=== PATIENT | male | born 1945 | race Caucasian/White ===

== ENCOUNTER 2016-11-23 12:02 | Emergency (ER) | payer MEDICARE, OTHER ==
--- NOTE | 2016-11-23 13:43 | XRAY Preliminary Report ---
Exam: XR Hand 3 View LT IMPRESSION: 1. Negative for evidence of a fracture or radiopaque foreign body. 2. Soft tissue injury distal index, long, and ring fingers. [facility] SITE ID: [id number]
--- NOTE | 2016-11-23 13:46 | XRAY Report ---
EXAM: LEFT HAND RADIOGRAPHY EXAM DATE: 11/23/2016 01:14 PM. CLINICAL HISTORY: Injury lac. Table saw injury. COMPARISON: None. TECHNIQUE: 3 views. FINDINGS: Bones: The bones appear to be intact without evidence of a fracture. Joints: Normal. No subluxations. Soft Tissues: There is soft tissue swelling and overlying bandage material in the distal index, long, and ring fingers. No radiopaque foreign bodies. IMPRESSION: 1. Negative for evidence of a fracture or radiopaque foreign body. 2. Soft tissue injury distal index, long, and ring fingers. [facility] Referring Provider Line: [phone] SITE ID: [id number]
[2016-11-23] MEDS ORDERED: BUFFERED LIDOCAINE 10 ML SYRINGE ONE (14:03)
[2016-11-23] MEDS ORDERED: TETANUS/DIPHTHERIA/PERTUSSIS 0.5 ML SYRINGE IM ONE ×2 (14:05→14:41)
--- NOTE | 2016-11-23 14:07 | ED Physician Documentation ---
PD HPI UPPER EXT INJURY - Stated complaint Stated Complaint: L HAND LAC - Chief complaint Chief Complaint: Laceration - History obtained from History obtained from: Patient - History of Present Illness Location: Other (Right-handed gentleman with unknown tetanus status cut the second third and fourth digits of the left hand just prior to arrival on a table saw while working at home.) Review of Systems Constitutional: reports: Reviewed and negative Nose: reports: Reviewed and negative Throat: reports: Reviewed and negative PD PAST MEDICAL HISTORY - Past Medical History Cardiovascular: Hypertension - Past Surgical History Past Surgical History: Yes - Present Medications Home Medications: Ambulatory Orders Medication Instructions Recorded Confirmed Aspirin [Aspir 81] 01/28/15 01/28/15 Lisinopril/Hydrochlorothiazide BID 01/28/15 01/28/15 [Lisinopril-Hctz 20-25 mg Tab] Glucosamine Sulfate 500 mg PO 02/08/16 Cephalexin [Keflex] 500 mg PO QID #40 capsule 11/23/16 - Allergies Allergies/Adverse Reactions: Allergies Allergy/AdvReac Type Severity Reaction Status Date / Time No Known Drug Allergies Allergy Verified 01/28/15 11:04 - Social History Does the pt smoke?: No Smoking Status: Never smoker Does the pt have substance abuse?: No - Immunizations Immunizations are current?: Yes PD ED PE NORMAL - Vitals Vital signs reviewed: Yes - General General: Alert and oriented X 3, No acute distress - Extremities Extremities: Other (Left hand: He has a shallow jagged laceration of the pulp of the fourth finger, a deeper laceration on the radial side of the middle finger and second finger, he has mildly diminished sensation on the tip of the middle finger but not absent. Tendon function, both flexor and and extensor is intact in all digits.) - Neuro Neuro: Alert and oriented X 3, Normal speech - Psych Psych: Normal mood, Normal affect Results - Vitals Vitals: Vital Signs - 24 hr 11/23/16 12:23 Temperature 36.5 C Heart Rate 74 Respiratory 18 Rate Blood Pressure 146/93 H O2 Saturation 98 Oxygen O2 Source Room air Procedures - Laceration (location) L HAND 2ND/3RD/4TH DIGITS Length in cm: 5 Wound type: Other (He had contaminated lacerations of the second through fourth fingers, on exploration he does have a flexor tendon laceration at the insertion on the second digit.) Anesthesia: Lidocaine 1%, With bicarb Wound Preparation: Hibiclens, Irrigated copiously NS Skin layer closure: Nylon, Interrupted, Size #-0 - enter number (4-0) Other: Patient tolerated well, No complications, Neurovascular intact, Tetanus booster given Complexity: Intermediate PD MEDICAL DECISION MAKING - ED course ED course: On exploration during repair. He has a visible laceration of the flexor tendon of the second digit at the level of the insertion onto the distal phalanx. This was discussed with him. Function seems intact though. The wound was debrided, irrigated and closed and he knows he needs to follow-up with hand surgeon. Departure - Departure Disposition: Home, Self Care Clinical Impression: Laceration of multiple sites of hand and fingers Qualifiers: Encounter type: initial encounter Laterality: left Qualified Code(s): S61.412A - Laceration without foreign body of left hand, initial encounter Condition: Good Record reviewed to determine appropriate education?: Yes Instructions: ED Laceration All Prescriptions: Cephalexin [Keflex] 500 mg PO QID #40 capsule Comments: You do have a laceration of the flexor tendon, partial, of the second digit at the insertion onto the distal phalanx. This requires follow-up with a hand surgeon, the closest is in [place], call [phone] toDAY to schedule an appointment. The appointment should be within the week. Keep the dressings on and dry until you follow-up. Your blood pressure was elevated today on check into the emergency department. This does not mean that you have hypertension, it is a common phenomenon to come to the emergency department and have elevated blood pressure. I recommend that she see your primary care physician within the week to have it rechecked when you are feeling better.
[2016-11-23] MEDS ORDERED: CEPHALEXIN 250 MG CAPSULE PO STA (14:33)
[2016-11-23] MEDS ORDERED: CEPHALEXIN 250 MG CAPSULE PO ONE (14:41)
[2016-11-23 15:00] VITALS: BP 139/88
== END 2016-11-23 14:59 | disposition home or self-care (01) ==
LOC: ED 12:02
DX: S61.211A Laceration without foreign body of left index finger without damage to nail, initial encounter (principal); S61.213A Laceration without foreign body of left middle finger without damage to nail, initial encounter; W27.0XXA Contact with workbench tool, initial encounter; Y93.89 Activity, other specified; Y92.009 Unspecified place in unspecified non-institutional (private) residence as the place of occurrence of the external cause; I10 Essential (primary) hypertension; Z79.82 Long term (current) use of aspirin; Z23 Encounter for immunization
CPT/HCPCS: 12032; 73130; 90471; 90715; 99283; A9270

== ENCOUNTER 2016-11-30 07:06 | Outpatient (CLI) | payer MEDICARE, OTHER ==
[2016-11-30 11:20] LABS: BASOPHILS % (AUTO) 0.8 %; EOSINOPHILS # (AUTO) 0.1 10^3/uL (0.0-0.7); EOSINOPHILS % (AUTO) 1.3 %; HCT - HEMATOCRIT 46.2 % (42.0-52.0); HGB - HEMOGLOBIN 15.5 g/dL (14.0-18.0); LYMPHOCYTES # (AUTO) 1.4 10^3/uL (1.5-3.5); LYMPHOCYTES % (AUTO) 27.5 %; MEAN CORPUSCULAR HEMOGLOBIN 33.3 pg (27.0-31.0); MEAN CORPUSCULAR HGB CONC 33.5 g/dL (32.0-36.0); MEAN CORPUSCULAR VOLUME 99.3 fL (80.0-94.0); MEAN PLATELET VOLUME 8.7 fL (7.4-11.4); MONOCYTES # (AUTO) 0.4 10^3/uL (0.0-1.0); MONOCYTES % (AUTO) 8.1 %; NEUTROPHILS # (AUTO) 3.2 10^3/uL (1.5-6.6); NEUTROPHILS % (AUTO) 62.3 %; NUCLEATED RED BLOOD CELLS AUTO 0.1 /100WBC; RED BLOOD COUNT 4.66 10^6/uL (4.70-6.10); RED CELL DISTRIBUTION WIDTH 13.2 % (12.0-15.0); UNCORRECTED WHITE BLOOD COUNT 5.1 x10^3/uL; WHITE BLOOD COUNT 5.1 x10^3/uL (4.8-10.8)
[2016-11-30 11:38] LABS: ALBUMIN/GLOBULIN RATIO 1.2 (1.0-2.2); BILIRUBIN,TOTAL 0.9 mg/dL (0.2-1.0); CALCIUM 9.5 mg/dL (8.5-10.3); CREATININE 0.8 mg/dL (0.6-1.2); POTASSIUM 4.2 mmol/L (3.5-5.0); TOTAL PROTEIN 7.9 g/dL (6.7-8.2)
== END 2016-11-30 07:07 | disposition home or self-care (01) ==
LOC: LAB.F 07:06
PROVIDERS: ATTEND Internal Medicine
DX: R53.83 Other fatigue (principal); R43.0 Anosmia; R43.2 Parageusia; I10 Essential (primary) hypertension; F34.1 Dysthymic disorder
CPT/HCPCS: 36415; 80053; 84443; 85025

== ENCOUNTER 2017-04-20 07:04 | Outpatient (CLI) | payer MEDICARE, OTHER ==
[2017-04-20 11:58] LABS: CHOLESTEROL 263 mg/dL; HDL CHOLESTEROL 66 mg/dL; LDL CHOLESTEROL,CALCULATED 159 mg/dL; LDL/HDL RATIO 2.4 (<3.6); VLDL CHOLESTEROL 38 mg/dL
== END 2017-04-20 07:05 | disposition home or self-care (01) ==
LOC: LAB.F 07:04
PROVIDERS: ATTEND Internal Medicine
DX: E78.5 Hyperlipidemia, unspecified (principal)
CPT/HCPCS: 36415; 80061; 83721

== ENCOUNTER 2017-05-16 14:02 | Outpatient (CLI) | payer MEDICARE, OTHER | END 2017-05-16 14:03 | disposition home or self-care (01) | LOC: SC 14:02 | PROVIDERS: ATTEND Internal Medicine Pulmonary Disease | DX: G47.10 Hypersomnia, unspecified (principal); G47.8 Other sleep disorders; R06.83 Snoring | CPT/HCPCS: 99203; G0463; 99212 ==

== ENCOUNTER 2017-05-29 08:00 | Outpatient (CLI) | payer MEDICARE, OTHER ==
[2017-05-29 11:58] LABS: CALCIUM 9.1 mg/dL (8.5-10.3); CREATININE 0.9 mg/dL (0.6-1.2)
== END 2017-05-29 08:01 | disposition home or self-care (01) ==
LOC: LAB.F 08:00
PROVIDERS: ATTEND Internal Medicine
DX: R53.83 Other fatigue (principal); E78.5 Hyperlipidemia, unspecified; G47.10 Hypersomnia, unspecified; R73.01 Impaired fasting glucose; I10 Essential (primary) hypertension; Z86.010 Personal history of colon polyps; Z85.46 Personal history of malignant neoplasm of prostate
CPT/HCPCS: 36415; 80048

== ENCOUNTER 2017-06-19 08:56 | Outpatient (CLI) | payer MEDICARE, OTHER | END 2017-06-19 08:57 | disposition home or self-care (01) | LOC: RT.S 08:56 | PROVIDERS: ATTEND Internal Medicine | DX: I49.9 Cardiac arrhythmia, unspecified (principal) | CPT/HCPCS: 93005 ==

== ENCOUNTER 2017-07-01 20:47 | Outpatient (CLI) | payer MEDICARE, OTHER | END 2017-07-01 20:48 | disposition home or self-care (01) | LOC: SC 20:47 | PROVIDERS: ATTEND Internal Medicine Pulmonary Disease | DX: G47.61 Periodic limb movement disorder (principal) | CPT/HCPCS: 95810 ==

== ENCOUNTER 2017-07-17 09:17 | Outpatient (CLI) | payer MEDICARE, OTHER | END 2017-07-17 09:18 | disposition home or self-care (01) | LOC: SC 09:17 | PROVIDERS: ATTEND Internal Medicine Pulmonary Disease | DX: G47.61 Periodic limb movement disorder (principal) | CPT/HCPCS: 99213; G0463; 99212 ==

== ENCOUNTER 2017-10-11 07:04 | Outpatient (CLI) | payer MEDICARE, OTHER ==
[2017-10-11 10:52] LABS: CHOL/HDL RATIO 3.1 (<5.0); CHOLESTEROL 204 mg/dL; HDL CHOLESTEROL 65 mg/dL; LDL CHOLESTEROL,CALCULATED 121 mg/dL; LDL/HDL RATIO 1.9 (<3.6); VLDL CHOLESTEROL 18 mg/dL
== END 2017-10-11 07:05 | disposition home or self-care (01) ==
LOC: LAB.F 07:04
PROVIDERS: ATTEND Internal Medicine
DX: I10 Essential (primary) hypertension (principal); E78.5 Hyperlipidemia, unspecified; R53.83 Other fatigue; G47.10 Hypersomnia, unspecified; R73.01 Impaired fasting glucose; Z86.010 Personal history of colon polyps; Z85.46 Personal history of malignant neoplasm of prostate
CPT/HCPCS: 36415; 80061; 83721

== ENCOUNTER 2018-05-23 07:08 | Outpatient (CLI) | payer MEDICARE, OTHER ==
[2018-05-23 11:21] LABS: ALBUMIN/GLOBULIN RATIO 1.3 (1.0-2.2); ALKALINE PHOSPHATASE 46 IU/L (42-121); ALT ALANINE AMINOTRANSFERASE 24 IU/L (10-60); AST ASPARTATE AMINOTRANSFERASE 29 IU/L (10-42); BILIRUBIN,TOTAL 1.1 mg/dL (0.2-1.0); BUN - BLOOD UREA NITROGEN 16 mg/dL (6-20); CALCIUM 8.9 mg/dL (8.5-10.3); CARBON DIOXIDE - CO2 27 mmol/L (21-32); CHLORIDE 102 mmol/L (101-111); CHOL/HDL RATIO 2.7 (<5.0); CHOLESTEROL 223 mg/dL; CREATININE 0.8 mg/dL (0.6-1.2); GFR - MDRD 95 (>89); GLUCOSE 101 mg/dL (70-100); HDL CHOLESTEROL 84 mg/dL; LDL CHOLESTEROL,CALCULATED 119 mg/dL; LDL/HDL RATIO 1.4 (<3.6); SODIUM 138 mmol/L (135-145); VLDL CHOLESTEROL 20 mg/dL
== END 2018-05-23 07:09 | disposition home or self-care (01) ==
LOC: LAB.F 07:08
PROVIDERS: ATTEND Internal Medicine
DX: E78.5 Hyperlipidemia, unspecified (principal)
CPT/HCPCS: 36415; 80053; 80061; 83721

== ENCOUNTER 2019-09-12 07:35 | Outpatient (CLI) | payer MEDICARE, OTHER ==
[2019-09-12 15:22] LABS: CREATININE 0.9 mg/dL (0.6-1.2)
[2019-09-12 15:32] LABS: HB2 TOTAL 16.3 g/dL; HEMOGLOBIN A1C 0.64 g/dL; HEMOGLOBIN A1C % 5.7 % (4.6-6.2)
== END 2019-09-12 07:36 | disposition home or self-care (01) ==
LOC: LAB.S 07:35
PROVIDERS: ATTEND Internal Medicine
DX: I10 Essential (primary) hypertension (principal); R73.01 Impaired fasting glucose
CPT/HCPCS: 36415; 80048; 83036

== ENCOUNTER 2020-06-03 07:10 | Outpatient (CLI) | payer MEDICARE, OTHER ==
[2020-06-03 14:27] LABS: BASOPHILS % (AUTO) 0.8 %; EOSINOPHILS # (AUTO) 0.1 10^3/uL (0.0-0.7); EOSINOPHILS % (AUTO) 2.1 %; HCT - HEMATOCRIT 46.7 % (42.0-52.0); HGB - HEMOGLOBIN 15.5 g/dL (14.0-18.0); LYMPHOCYTES # (AUTO) 1.3 10^3/uL (1.5-3.5); LYMPHOCYTES % (AUTO) 33.2 %; MEAN CORPUSCULAR HEMOGLOBIN 33.4 pg (27.0-31.0); MEAN CORPUSCULAR HGB CONC 33.2 g/dL (32.0-36.0); MEAN CORPUSCULAR VOLUME 100.6 fL (80.0-94.0); MEAN PLATELET VOLUME 10.7 fL (7.4-11.4); MONOCYTES # (AUTO) 0.3 10^3/uL (0.0-1.0); MONOCYTES % (AUTO) 8.5 %; NEUTROPHILS # (AUTO) 2.2 10^3/uL (1.5-6.6); NEUTROPHILS % (AUTO) 55.1 %; PLT - PLATELET COUNT 194 10^3/uL (130-450); RED BLOOD COUNT 4.64 10^6/uL (4.70-6.10); RED CELL DISTRIBUTION WIDTH 12.8 % (12.0-15.0); WHITE BLOOD COUNT 3.9 x10^3/uL (4.8-10.8)
[2020-06-03 15:12] LABS: ALBUMIN 4.2 g/dL (3.2-5.5); ALBUMIN/GLOBULIN RATIO 1.3 (1.0-2.2); ALKALINE PHOSPHATASE 43 IU/L (42-121); ALT ALANINE AMINOTRANSFERASE 26 IU/L (10-60); AST ASPARTATE AMINOTRANSFERASE 27 IU/L (10-42); BUN - BLOOD UREA NITROGEN 17 mg/dL (6-20); CALCIUM 9.2 mg/dL (8.5-10.3); CARBON DIOXIDE - CO2 27 mmol/L (21-32); CHLORIDE 105 mmol/L (101-111); CHOL/HDL RATIO 3.8 (<5.0); CHOLESTEROL 246 mg/dL; CREATININE 0.8 mg/dL (0.6-1.2); GFR - MDRD 94 (>89); GLUCOSE 102 mg/dL (70-100); HDL CHOLESTEROL 64 mg/dL; LDL CHOLESTEROL,CALCULATED 157 mg/dL; LDL/HDL RATIO 2.5 (<3.6); SODIUM 140 mmol/L (135-145); TOTAL PROTEIN 7.4 g/dL (6.7-8.2); TRIGLYCERIDES 127 mg/dL; VLDL CHOLESTEROL 25 mg/dL
== END 2020-06-03 07:11 | disposition home or self-care (01) ==
LOC: LAB.S 07:10
PROVIDERS: ATTEND Internal Medicine
DX: I10 Essential (primary) hypertension (principal); E78.5 Hyperlipidemia, unspecified
CPT/HCPCS: 36415; 80053; 80061; 83721; 85025

== ENCOUNTER 2020-06-24 07:55 | Outpatient (CLI) | payer MEDICARE, OTHER | END 2020-06-24 07:56 | disposition home or self-care (01) | LOC: DI 07:55 | PROVIDERS: ATTEND Internal Medicine | DX: R01.1 Cardiac murmur, unspecified (principal); I51.7 Cardiomegaly | CPT/HCPCS: 93306 ==

== ENCOUNTER 2020-12-15 07:03 | Outpatient (CLI) | payer MEDICARE, OTHER ==
[2020-12-15 14:53] LABS: BASOPHILS # (AUTO) 0.1 10^3/uL (0.0-0.1); BASOPHILS % (AUTO) 1.5 %; EOSINOPHILS # (AUTO) 0.1 10^3/uL (0.0-0.7); EOSINOPHILS % (AUTO) 2.4 %; HCT - HEMATOCRIT 47.4 % (42.0-52.0); HGB - HEMOGLOBIN 15.5 g/dL (14.0-18.0); LYMPHOCYTES # (AUTO) 1.3 10^3/uL (1.5-3.5); LYMPHOCYTES % (AUTO) 32.3 %; MEAN CORPUSCULAR HEMOGLOBIN 33.1 pg (27.0-31.0); MEAN CORPUSCULAR HGB CONC 32.7 g/dL (32.0-36.0); MEAN CORPUSCULAR VOLUME 101.3 fL (80.0-94.0); MEAN PLATELET VOLUME 10.6 fL (7.4-11.4); MONOCYTES # (AUTO) 0.3 10^3/uL (0.0-1.0); MONOCYTES % (AUTO) 8.3 %; NEUTROPHILS # (AUTO) 2.2 10^3/uL (1.5-6.6); NEUTROPHILS % (AUTO) 54.8 %; PLT - PLATELET COUNT 198 10^3/uL (130-450); RED BLOOD COUNT 4.68 10^6/uL (4.70-6.10); RED CELL DISTRIBUTION WIDTH 12.6 % (12.0-15.0); WHITE BLOOD COUNT 4.1 x10^3/uL (4.8-10.8)
[2020-12-15 15:21] LABS: ALBUMIN 4.1 g/dL (3.2-5.5); ALBUMIN/GLOBULIN RATIO 1.3 (1.0-2.2); ALKALINE PHOSPHATASE 44 IU/L (42-121); ALT ALANINE AMINOTRANSFERASE 23 IU/L (10-60); AST ASPARTATE AMINOTRANSFERASE 25 IU/L (10-42); BUN - BLOOD UREA NITROGEN 14 mg/dL (6-20); CALCIUM 9.3 mg/dL (8.5-10.3); CARBON DIOXIDE - CO2 28 mmol/L (21-32); CHLORIDE 103 mmol/L (101-111); CHOL/HDL RATIO 3.5 (<5.0); CHOLESTEROL 228 mg/dL; CREATININE 0.8 mg/dL (0.6-1.2); GFR - MDRD 94 (>89); GLUCOSE 100 mg/dL (70-100); HDL CHOLESTEROL 65 mg/dL; LDL CHOLESTEROL,CALCULATED 137 mg/dL; LDL/HDL RATIO 2.1 (<3.6); POTASSIUM 3.8 mmol/L (3.5-5.0); SODIUM 141 mmol/L (135-145); TOTAL PROTEIN 7.2 g/dL (6.7-8.2); TRIGLYCERIDES 132 mg/dL; VLDL CHOLESTEROL 26 mg/dL
== END 2020-12-15 07:04 | disposition home or self-care (01) ==
LOC: LAB.S 07:03
PROVIDERS: ATTEND Internal Medicine
DX: I10 Essential (primary) hypertension (principal); E78.5 Hyperlipidemia, unspecified
CPT/HCPCS: 36415; 80053; 80061; 83721; 85025

== ENCOUNTER 2021-02-26 10:57 | Outpatient (CLI) | payer MEDICARE, OTHER ==
--- NOTE | 2021-02-26 14:34 | XRAY Report ---
PROCEDURE: Cervical Spine w/Flex/Ext INDICATIONS: CERVICALGIA TECHNIQUE: 9 views of the cervical spine were acquired. COMPARISON: None. FINDINGS: Bones: No fractures or dislocations to the C7 level. There is moderate to severe degenerative change in the cervical spine. This is demonstrable by intervertebral disc space height loss, prominent oste ophytes, and uncovertebral joint hypertrophy. There is neural foraminal narrowing most pronounced on the left at C3-C4. No suspicious bony lesions. There is decreased range of motion between flexion an d extension, with preserved normal bony alignment. Soft tissues: Prevertebral soft tissues are normal in thickness. IMPRESSION: Moderate to severe cervical spine degenerative change. Neuroforaminal narrowing most pronounced at the left C3-C4. Decreased range of motion. Reviewed by: Christopher Jasso MD on 02/26/2021 2:33 PM PST Approved by: Christopher Jasso MD on 02/26/2021 2:33 PM PST Station ID: [id number]
== END 2021-02-26 10:58 | disposition home or self-care (01) ==
LOC: DI 10:57
PROVIDERS: ATTEND Internal Medicine
DX: M54.2 Cervicalgia (principal); M47.812 Spondylosis without myelopathy or radiculopathy, cervical region

== ENCOUNTER 2021-03-22 13:58 | Outpatient (CLI) | payer MEDICARE, OTHER ==
--- NOTE | 2021-03-22 18:08 | MRI Report ---
PROCEDURE: Cervical Spine W/O INDICATIONS: CERVICALGIA TECHNIQUE: Noncontrast sagittal T1 spin echo and T2 fast spin echo, sagittal STIR, foraminal oblique sagittal T2 fast spin echo, and axial gradient echo or T2 fast spin echo through the cervical spine. COMPARISON: None. FINDINGS: Straightening of usual cervical lordosis. Otherwise normal alignment. Vertebral body heights maintain ed. No suspicious focal marrow signal abnormality or significant marrow edema identified. Normal morp hology and signal intensity of the cervical cord. There is no syrinx. The regional prevertebral and p araspinal soft tissues are grossly unremarkable in the absence of IV contrast. C2-C3: No spinal canal or neural foraminal stenosis. C3-C4: No spinal canal stenosis. Facet and uncovertebral hypertrophy contribute to moderate left an d mild right neural foraminal stenosis. C4-C5: No spinal canal stenosis. Facet and uncovertebral hypertrophy contribute to severe right and moderate left neural foraminal stenosis. C5-C6: No spinal canal stenosis. Mild bilateral neural foraminal narrowing due to facet and uncovert ebral hypertrophy. C6-C7: No spinal canal stenosis. Moderate left and mild right neural foraminal stenosis due to facet and uncovertebral hypertrophy. C7-T1: No spinal canal stenosis. Mild neural foraminal narrowing on the left due to uncovertebral sp urring. IMPRESSION: Multilevel multifactorial degenerative changes with severe neural foraminal narrowing on the right at C4-C5 along with moderate neural foraminal narrowing on the left at C3-C4 and C4-C5. No spinal canal stenosis identified. Reviewed by: Sage Coronado MD on 03/22/2021 5:06 PM [facility] Approved by: Sage Coronado MD on 03/22/2021 5:06 PM [facility] Station ID: [id number]
== END 2021-03-22 13:59 | disposition home or self-care (01) ==
LOC: DI 13:58
PROVIDERS: ATTEND Internal Medicine
DX: M47.812 Spondylosis without myelopathy or radiculopathy, cervical region (principal); M48.02 Spinal stenosis, cervical region; M48.03 Spinal stenosis, cervicothoracic region

== ENCOUNTER 2021-06-21 07:07 | Outpatient (CLI) | payer MEDICARE, OTHER ==
[2021-06-21 14:46] LABS: BASOPHILS % (AUTO) 0.9 %; EOSINOPHILS # (AUTO) 0.1 10^3/uL (0.0-0.7); EOSINOPHILS % (AUTO) 2.1 %; HCT - HEMATOCRIT 47.6 % (42.0-52.0); HGB - HEMOGLOBIN 15.6 g/dL (14.0-18.0); LYMPHOCYTES # (AUTO) 1.5 10^3/uL (1.5-3.5); LYMPHOCYTES % (AUTO) 33.6 %; MEAN CORPUSCULAR HEMOGLOBIN 32.3 pg (27.0-31.0); MEAN CORPUSCULAR HGB CONC 32.8 g/dL (32.0-36.0); MEAN CORPUSCULAR VOLUME 98.6 fL (80.0-94.0); MEAN PLATELET VOLUME 10.3 fL (7.4-11.4); MONOCYTES # (AUTO) 0.4 10^3/uL (0.0-1.0); MONOCYTES % (AUTO) 9.3 %; NEUTROPHILS # (AUTO) 2.3 10^3/uL (1.5-6.6); NEUTROPHILS % (AUTO) 53.6 %; PLT - PLATELET COUNT 199 10^3/uL (130-450); RED BLOOD COUNT 4.83 10^6/uL (4.70-6.10); RED CELL DISTRIBUTION WIDTH 12.7 % (12.0-15.0); WHITE BLOOD COUNT 4.3 x10^3/uL (4.8-10.8)
[2021-06-21 15:13] LABS: ALBUMIN 4.1 g/dL (3.2-5.5); ALBUMIN/GLOBULIN RATIO 1.2 (1.0-2.2); ALKALINE PHOSPHATASE 42 IU/L (42-121); ALT ALANINE AMINOTRANSFERASE 23 IU/L (10-60); AST ASPARTATE AMINOTRANSFERASE 24 IU/L (10-42); BILIRUBIN,TOTAL 1.2 mg/dL (0.2-1.0); BUN - BLOOD UREA NITROGEN 19 mg/dL (6-20); CALCIUM 9.5 mg/dL (8.5-10.3); CARBON DIOXIDE - CO2 27 mmol/L (21-32); CHLORIDE 100 mmol/L (101-111); CHOLESTEROL 260 mg/dL; CREATININE 0.9 mg/dL (0.6-1.2); GFR - MDRD 82 (>89); GLUCOSE 100 mg/dL (70-100); HDL CHOLESTEROL 63 mg/dL; LDL CHOLESTEROL,CALCULATED 165 mg/dL; POTASSIUM 4.2 mmol/L (3.5-5.0); SODIUM 139 mmol/L (135-145); TOTAL PROTEIN 7.5 g/dL (6.7-8.2); TRIGLYCERIDES 160 mg/dL; VLDL CHOLESTEROL 32 mg/dL
[2021-06-21 15:14] LABS: CHOL/HDL RATIO 4.1 (<5.0); LDL/HDL RATIO 2.6 (<3.6)
== END 2021-06-21 07:08 | disposition home or self-care (01) ==
LOC: LAB.S 07:07
PROVIDERS: ATTEND Internal Medicine
DX: I10 Essential (primary) hypertension (principal); E78.5 Hyperlipidemia, unspecified
CPT/HCPCS: 36415; 80053; 80061; 83721; 85025

== ENCOUNTER 2021-07-30 06:25 | Day surgery (SDC) | payer MEDICARE, OTHER ==
[2021-07-30] MEDS ORDERED: LACTATED RINGERS 1,000 ML IV ONE ×2 (06:36→08:06)
--- NOTE | 2021-07-30 07:07 | ANESTHESIA ---
Pre-Anesthesia VS, & Labs - Diagnosis hx of colon polyps - Procedure colonoscopy Vital Signs: Temp Pulse Resp BP Pulse Ox 36.7 C 88 14 129/92 H 07/30/21 06:30 07/30/21 06:30 07/30/21 06:30 07/30/21 06:30 Height: 6 ft Weight (kg): 101 kg Body Mass Index: 30.2 BMI Classification: Obese - NPO >8 hours - Lab Results Lab results reviewed: Yes Home Medications and Allergies Home Medications: Ambulatory Orders Cholecalciferol (Vitamin D3) [Vitamin D3] 25 mg PO DAILY 07/30/21 Loratadine [Claritin] 10 mg PO DAILY 07/30/21 Calcium Carbonate [Calcium] 600 mg PO DAILY 05/12/21 glucosamine HCL [Glucosamine HCl] 1,500 mg PO DAILY 05/12/21 hydroCHLOROthiazide [Hydrodiuril] 25 mg PO DAILY 05/12/21 lisinopriL [Lisinopril] 40 mg PO DAILY 05/12/21 Cholecalciferol (Vitamin D3) [Vitamin D3] 25 mg PO DAILY 07/30/21 Loratadine [Claritin] 10 mg PO DAILY 07/30/21 Allergies/Adverse Reactions: Allergies Allergy/AdvReac Type Severity Reaction Status Date / Time amoxicillin Allergy Rash Verified 07/30/21 06:52 Anes History & Medical History - Anesthetic History Anesthesia Complications: reports: No previous complications Family history of Anesthesia Complications: Denies Family history of Malignant Hyperthermia: Denies - Medical History Cardiovascular: reports: Hypertension Smoking Status: Never smoker - Surgical History General: reports: Colonoscopy Urologic: reports: Prostatic surgery Results - Echo Results Echo Results: Report reviewed Exam General: Alert, Oriented x3, Cooperative, No acute distress Dental: Poor dentition Mouth Openin Fingerbreadth Neck Mobility: Normal Mallampati classification: II Plan Anesthesia Type: General, Total IV Consent for Procedure(s) Verified and Reviewed: Yes Code Status: Attempt Resuscitation ASA classification: 2-Mild systemic disease Is this case an emergency?: No
[2021-07-30] MEDS ORDERED: PROPOFOL 500 MG/50 ML 500 MG/50 ML VIAL ONE (07:16)
--- NOTE | 2021-07-30 07:24 | HISTORY & PHYSICAL EXAMINATION ---
Chief Complaint - Chief Complaint Chief Complaint: history colon polyps History of Present Illness - History Obtained From Records Reviewed: yes Exam Limitations: none - History of Present Illness HPI Comment/Other: history colon polyps 2 of the last 3 colonoscopies. last colonoscopy 5 years ago no polyps. his agile tester recommends a colonoscopy at this time. no problems History - Past Medical History Cardiovascular: reports: Hypertension MRSA Hx?: No - Past Surgical History General: reports: Colonoscopy - POLST Patient has POLST: No Meds/Allgy - Home Medications Home Medications: Ambulatory Orders Medication Instructions Recorded Confirmed Calcium Carbonate [Calcium] 600 mg PO DAILY 05/12/21 07/29/21 glucosamine HCL [Glucosamine HCl] 1,500 mg PO DAILY 05/12/21 07/29/21 hydroCHLOROthiazide [Hydrodiuril] 25 mg PO DAILY 05/12/21 07/29/21 lisinopriL [Lisinopril] 40 mg PO DAILY 05/12/21 07/29/21 Cholecalciferol (Vitamin D3) 25 mg PO DAILY 07/30/21 07/30/21 [Vitamin D3] Loratadine [Claritin] 10 mg PO DAILY 07/30/21 07/30/21 - Allergies Allergies/Adverse Reactions: Allergies Allergy/AdvReac Type Severity Reaction Status Date / Time amoxicillin Allergy Rash Verified 07/30/21 06:52 Review of Systems - Other Findings Other Findings: 10 pt ros as above otherwise unremarkable Exam - Vital Signs Reviewed Vital Signs: Yes Vital Signs: Vital Signs x48h Temp Pulse Resp BP 07/30/21 06:30 36.7 C 88 14 129/92 H - Physical Exam General Appearance: positive: No acute distress, Alert Eyes Bilateral: positive: PERRL, EOMI, No scleral icterus ENT: positive: No signs of dehydration Neck: positive: No JVD Respiratory: positive: No respiratory distress, Breath sounds nml Cardiovascular: positive: Regular rate & rhythm Abdomen: positive: Non-tender, No distention Neurologic/Psychiatric: positive: Oriented x3 Conclusion/Plan - Problem List (1) History of adenomatous polyp of colon Conclusion/Plan: plan colonoscopy. parq held and consent obtained - Lab Results Lab results reviewed: Yes
--- NOTE | 2021-07-30 08:26 | ANESTHESIA POST OP EVALUATION ---
Anesthesia Post Eval - Post Anesthesia Eval Vitals: Last Vital Signs Temp 37.2 C 07/30/21 08:17 Pulse 72 07/30/21 08:17 Resp 20 07/30/21 08:17 BP 109/59 L 07/30/21 08:17 Pulse Ox 97 07/30/21 08:17 CV Function Including HR & BP: Stable Pain Control: Satisfactory Nausea & Vomiting: Negative Mental Status: Baseline Respiratory Status: Airway Patent Hydration Status: Satisfactory Anesthesia Complications: None
[2021-07-30 08:47] VITALS: BP 133/72
== END 2021-07-30 06:26 | disposition home or self-care (01) ==
LOC: SDS 06:25
PROVIDERS: ATTEND Surgery
PROC: 0DBL8ZZ Excision of Transverse Colon, Via Natural or Artificial Opening Endoscopic (ICD-10-PCS; 2021-07-30)
PROC: 0DBK8ZZ Excision of Ascending Colon, Via Natural or Artificial Opening Endoscopic (ICD-10-PCS; principal; 2021-07-30 07:30)
DX: Z12.11 Encounter for screening for malignant neoplasm of colon (principal); D12.3 Benign neoplasm of transverse colon; D12.2 Benign neoplasm of ascending colon; E66.9 Obesity, unspecified; Z68.30 Body mass index [BMI] 30.0-30.9, adult; Z79.899 Other long term (current) drug therapy
CPT/HCPCS: 45380; J7120

== ENCOUNTER 2021-10-04 13:38 | Outpatient (CLI) | payer MEDICARE, OTHER ==
--- NOTE | 2021-10-05 09:16 | CT Report ---
PROCEDURE: CHEST WO INDICATIONS: RADON EXPOSURE, CHRONIC COUGH TECHNIQUE: Noncontrast 1mm axial images were acquired from the pulmonary apices to the posterior costophrenic an gles. Axial 5 mm soft tissue kernel reconstructions were performed as well as 8 mm axial MIP and cor onal and sagittal 5 mm reformations. For radiation dose reduction, the following was used: automate d exposure control, adjustment of mA and/or kV according to patient size. COMPARISON: None FINDINGS: Image quality: Excellent. Lungs and pleura: No acute air space opacities. No pleural effusions or pneumothorax. Central and peripheral airways are patent and normal in caliber. Mediastinum: Heart size is normal. No pericardial effusion. Moderate coronary artery calcifications . No mediastinal adenopathy by size criteria. Thoracic aorta and central pulmonary arteries are norm al in size. Esophagus is normal in caliber. No hiatal hernia. Bones and chest wall: No suspicious bony lesions. There is a moderate comminuted compression fractur e of L1 which may potentially be acute or subacute. No axillary or supraclavicular adenopathy by size criteria. The thyroid is normal in size and there are no incidental findings. Abdomen: Visualized upper abdominal solid organs and bowel loops appear normal in the absence of con trast. IMPRESSION: 1. No findings of pulmonary malignancy or acute pulmonary process or significant interstitial lung di sease. 2. Moderate coronary artery calcifications. 3. Moderate comminuted L1 compression fracture, possibly acute or subacute. Comment: Lumbar spine MRI may be helpful to evaluate the acuity of the lumbar compression fracture. CLINICAL RECOMMENDATION STATEMENTS: In patients <35 years with an ITN detected on CT, MRI, or extrathyroidal ultrasound, the Committee re commends further evaluation with dedicated thyroid ultrasound if the nodule is "e1 cm and has no susp icious imaging features, and if the patient has normal life expectancy. In patients "e35 years with an ITN detected on CT, MRI, or extrathyroidal ultrasound, the Committee r ecommends further evaluation with dedicated thyroid ultrasound if the nodule is "e1.5 cm and has no s uspicious imaging features, and if the patient has normal life expectancy. (ACR, 2014) Reviewed by: Luis Enrique Pineda MD on 10/05/2021 9:14 AM PDT Approved by: Luis Enrique Pineda MD on 10/05/2021 9:14 AM PDT Station ID: [id number]
== END 2021-10-04 13:39 | disposition home or self-care (01) ==
LOC: DI 13:38
PROVIDERS: ATTEND Physician Assistant
DX: M48.56XA Collapsed vertebra, not elsewhere classified, lumbar region, initial encounter for fracture (principal); R05.3 Chronic cough; I25.10 Atherosclerotic heart disease of native coronary artery without angina pectoris; Z77.29 Contact with and (suspected) exposure to other hazardous substances

== ENCOUNTER 2021-11-16 08:00 | Outpatient (CLI) | payer MEDICARE, OTHER ==
[2021-11-16 16:18] LABS: BF CLARITY CLEAR; BF COLOR YELLOW; MESOTHELIAL %, BF 0 %
[2021-11-16 16:19] LABS: BF SOURCE SYNOVIAL
[2021-11-16 16:22] LABS: CC,BF WBC 161 /mm^3
[2021-11-16 16:23] LABS: CC,BF RBC 4000 /mm^3
== END 2021-11-16 23:59 | disposition home or self-care (01) ==
LOC: LAB.S 08:00
PROVIDERS: ATTEND Emergency Medicine
DX: M70.51 Other bursitis of knee, right knee (principal)
CPT/HCPCS: 87070; 87205; 89051

== ENCOUNTER 2021-12-06 21:02 | Outpatient (CLI) | payer MEDICARE, OTHER | END 2021-12-06 21:03 | disposition left against medical advice (07) | LOC: EMS 21:02 | DX: S01.81XA Laceration without foreign body of other part of head, initial encounter (principal); S01.21XA Laceration without foreign body of nose, initial encounter; W01.0XXA Fall on same level from slipping, tripping and stumbling without subsequent striking against object, initial encounter; Y92.008 Other place in unspecified non-institutional (private) residence as the place of occurrence of the external cause ==

== ENCOUNTER 2021-12-06 22:08 | Emergency (ER) | payer MEDICARE, OTHER ==
[2021-12-07] MEDS ORDERED: lidocaine 1% 20 ML MDV SUBQ ONE (00:34)
[2021-12-07] MEDS ORDERED: BACITRACIN ZINC OINT 1 PACKET TOP STA (01:14)
--- NOTE | 2021-12-07 01:17 | ED Physician Documentation ---
PD HPI HEAD INJURY - Stated complaint Stated Complaint: GLF,NOSE INJ,HIGH BP - Chief complaint Chief Complaint: Trauma Hd/Nk - History obtained from History obtained from: Patient - Additional information Additional information: Patient comes to the emergency department chief complaint of ground-level fall. He states he was walking his dogs when he believes he tripped. He lurched forward and struck his face, sustaining lacerations over his nasal bridge in between his eyebrows from his glasses frame. Patient states he does not take any anticoagulants. He did not lose consciousness and has not had a headache. He denies any neck pain, rib pain, or hip pain. He has been ambulatory and without pain in his extremities since the fall. No other complaints at this time. Review of Systems Ten Systems: 10 systems reviewed and negative Constitutional: reports: Reviewed and negative Eyes: reports: Reviewed and negative Ears: reports: Reviewed and negative Nose: reports: Reviewed and negative Throat: reports: Reviewed and negative Cardiac: reports: Reviewed and negative Respiratory: reports: Reviewed and negative GI: reports: Reviewed and negative : reports: Reviewed and negative Skin: reports: Laceration (s) Musculoskeletal: reports: Reviewed and negative Neurologic: reports: Head injury Psychiatric: reports: Reviewed and negative Endocrine: reports: Reviewed and negative Immunocompromised: reports: Reviewed and negative PD PAST MEDICAL HISTORY - Past Medical History Past Medical History: Yes Cardiovascular: Hypertension - Past Surgical History Past Surgical History: Yes - Present Medications Home Medications: Ambulatory Orders Medication Instructions Recorded Confirmed hydroCHLOROthiazide [Hydrodiuril] 25 mg PO DAILY 05/12/21 12/06/21 Losartan Potassium [Cozaar] 100 mg PO DAILY 12/06/21 12/06/21 - Allergies Allergies/Adverse Reactions: Allergies Allergy/AdvReac Type Severity Reaction Status Date / Time amoxicillin Allergy Rash Verified 12/06/21 22:21 - Social History Does the pt smoke?: No Smoking Status: Never smoker Does the pt drink ETOH?: No Does the pt have substance abuse?: No - Immunizations Immunizations are current?: Yes - POLST Patient has POLST: No PD ED PE NORMAL - Vitals Vital signs reviewed: Yes - General General: Alert and oriented X 3, No acute distress, Well developed/nourished - HEENT HEENT: PERRL, EOMI, Moist mucous membranes, Other (Curved laceration, 3 cm, between But not involving eyebrows; stellate laceration, total length 2.5 cm, over nasal bridge. No deformity or step-off.Mild epistaxis.) - Neck Neck: Supple, no meningeal sign, No bony TTP - Respiratory Respiratory: No respiratory distress - Derm Derm: Normal color, Warm and dry, No rash, Other (Lacerations to face as above.) - Extremities Extremities: No deformity - Neuro Neuro: Alert and oriented X 3 - Psych Psych: Normal mood, Normal affect Results - Vitals Vitals: Vital Signs - 24 hr 12/06/21 12/07/21 22:15 01:37 Temperature 36.2 C L 36.3 C L Heart Rate 88 78 Respiratory 16 18 Rate Blood Pressure 145/83 H 159/83 H O2 Saturation 98 99 Oxygen O2 Source Room air Procedures - Laceration (location) Forehead Length in cm: 3 Wound type: Curved, Into subcut fat, Clean Neurovascular status: Sensory intact, Vascular intact Anesthesia: Lidocaine 1% Wound preparation: Hibiclens, Irrigated copiously NS, Wound explored, To the base Skin layer closure: Nylon, Interrupted, Size #-0 - enter number (5.0), Sutures - enter # (7) Other: Patient tolerated well, No complications, Neurovascular intact, Dressing applied, Tetanus UTD Nasal bridge Length in cm: 2.5 Wound type: Stellate, Into subcut fat Neurovascular status: Sensory intact, Vascular intact Anesthesia: Lidocaine 1% Wound preparation: Hibiclens, Irrigated copiously NS, Wound explored, To the base Skin layer closure: Nylon, Interrupted, Size #-0 - enter number (4.0), Sutures - enter # (4) Other: Patient tolerated well, No complications, Neurovascular intact, Dressing applied PD MEDICAL DECISION MAKING - ED course Complexity details: considered differential, d/w patient ED course: The patient's lacerations were repaired as above. We have discussed wound care at home, as well as the timeline for wound check and suture removal. We have discussed the usual indications for return. Departure - Departure Disposition: 01 Home, Self Care Clinical Impression: Face lacerations Qualifiers: Encounter type: initial encounter Qualified Code(s): S01.81XA - Laceration without foreign body of other part of head, initial encounter Condition: Stable Instructions: ED Laceration Facial Sutr Tape Comments: 7 sutures have been placed in your forehead laceration and 4 sutures in your kyra al laceration. They are all synthetic sutures, which will need to be removed by medical professional in 7 days. You may allow water and soap to run over the wounds, but please do not rub, scrub, or immerse the wounds until the sutures are removed. This is in order to prevent infection. Please follow-up with your primary doctor or walk-in clinic to have the sutures removed. You may also return to the emergency department for this if you cannot be seen in any of the other venues. Discharge Date/Time: 12/07/21 01:39
[2021-12-07] MEDS ORDERED: BACITRACIN ZINC OINT 1 PACKET TOP ONE (01:29)
[2021-12-07 01:39] VITALS: BP 159/83
== END 2021-12-07 01:39 | disposition home or self-care (01) ==
LOC: ED 22:08
DX: S01.21XA Laceration without foreign body of nose, initial encounter (principal); W01.0XXA Fall on same level from slipping, tripping and stumbling without subsequent striking against object, initial encounter; Y93.K1 Activity, walking an animal; I10 Essential (primary) hypertension
CPT/HCPCS: 12014; 99281; A9270

== ENCOUNTER 2022-01-31 17:32 | Outpatient (CLI) | payer MEDICARE, OTHER ==
--- NOTE | 2022-01-31 15:40 | XRAY Report ---
PROCEDURE: Elbow 3 View RT INDICATIONS: RIGHT ELBOW PAIN TECHNIQUE: 3 views of the elbow were acquired. COMPARISON: None FINDINGS: Bones: No fractures or dislocations. No suspicious bony lesions. Soft tissues: No elbow joint effusion. No suspicious soft tissue calcifications. IMPRESSION: No visualized acute fracture or dislocation. However, occult injury cannot be excluded. Recommend lucy rt interval imaging follow-up in 7-10 days as clinically indicated for additional evaluation. Reviewed by: Vero Brown MD on 01/31/2022 3:38 PM PST Approved by: Vero Brown MD on 01/31/2022 3:38 PM PST Station ID: [id number]
== END 2022-01-31 17:33 | disposition home or self-care (01) ==
LOC: DI.S 17:32
PROVIDERS: ATTEND Emergency Medicine
DX: M25.521 Pain in right elbow (principal)

== ENCOUNTER 2022-03-23 08:00 | Outpatient (CLI) | payer MEDICARE, OTHER ==
[2022-03-23 16:00] LABS: BF CLARITY CLOUDY; BF COLOR RED; BF SOURCE SYNOVIAL; CC,BF RBC 13000 /mm^3; CC,BF WBC 690 /mm^3
[2022-03-23 16:27] LABS: LYMPHOCYTES %,BODY FLUID 10 %; MACROPHAGES %,BODY FLUID 53 %; MESOTHELIAL %, BF 1 %; MONOCYTES %,BODY FLUID 3 %; NEUTROPHILS %, BF 33 %
== END 2022-03-23 23:59 | disposition home or self-care (01) ==
LOC: LAB 08:00
PROVIDERS: ATTEND Emergency Medicine
DX: M70.21 Olecranon bursitis, right elbow (principal); M25.521 Pain in right elbow
CPT/HCPCS: 87070; 87205; 89051; 89060

== ENCOUNTER 2022-04-29 07:35 | Outpatient (CLI) | payer MEDICARE, OTHER ==
[2022-04-29 14:36] LABS: BASOPHILS # (AUTO) 0.1 10^3/uL (0.0-0.1); EOSINOPHILS # (AUTO) 0.1 10^3/uL (0.0-0.7); EOSINOPHILS % (AUTO) 2.3 %; HCT - HEMATOCRIT 45.9 % (42.0-52.0); HGB - HEMOGLOBIN 14.9 g/dL (14.0-18.0); LYMPHOCYTES # (AUTO) 1.4 10^3/uL (1.5-3.5); LYMPHOCYTES % (AUTO) 29.9 %; MEAN CORPUSCULAR HEMOGLOBIN 32.5 pg (27.0-31.0); MEAN CORPUSCULAR HGB CONC 32.5 g/dL (32.0-36.0); MEAN PLATELET VOLUME 10.4 fL (7.4-11.4); MONOCYTES # (AUTO) 0.4 10^3/uL (0.0-1.0); MONOCYTES % (AUTO) 7.5 %; NEUTROPHILS # (AUTO) 2.8 10^3/uL (1.5-6.6); NEUTROPHILS % (AUTO) 59.1 %; PLT - PLATELET COUNT 200 10^3/uL (130-450); RED BLOOD COUNT 4.59 10^6/uL (4.70-6.10); RED CELL DISTRIBUTION WIDTH 13.2 % (12.0-15.0); WHITE BLOOD COUNT 4.8 x10^3/uL (4.8-10.8)
[2022-04-29 15:30] LABS: THYROID STIMULATING HORMONE 3.11 uIU/mL (0.34-5.60)
[2022-04-29 16:36] LABS: ALBUMIN 3.9 g/dL (3.2-5.5); ALBUMIN/GLOBULIN RATIO 1.2 (1.0-2.2); ALKALINE PHOSPHATASE 42 IU/L (42-121); ALT ALANINE AMINOTRANSFERASE 22 IU/L (10-60); AST ASPARTATE AMINOTRANSFERASE 22 IU/L (10-42); BUN - BLOOD UREA NITROGEN 14 mg/dL (6-20); CALCIUM 8.8 mg/dL (8.5-10.3); CARBON DIOXIDE - CO2 27 mmol/L (21-32); CHLORIDE 103 mmol/L (101-111); CHOL/HDL RATIO 3.5 (<5.0); CHOLESTEROL 209 mg/dL; CREATININE 0.9 mg/dL (0.6-1.2); GFR - MDRD 82 (>89); GLUCOSE 94 mg/dL (70-100); HDL CHOLESTEROL 60 mg/dL; LDL CHOLESTEROL,CALCULATED 120 mg/dL; POTASSIUM 3.6 mmol/L (3.5-5.0); SODIUM 136 mmol/L (135-145); TOTAL PROTEIN 7.2 g/dL (6.7-8.2); TRIGLYCERIDES 143 mg/dL; VLDL CHOLESTEROL 29 mg/dL
== END 2022-04-29 07:36 | disposition home or self-care (01) ==
LOC: LAB.S 07:35
PROVIDERS: ATTEND Physician Assistant
DX: I10 Essential (primary) hypertension (principal); E78.5 Hyperlipidemia, unspecified; R53.83 Other fatigue
CPT/HCPCS: 36415; 80053; 80061; 83721; 84403; 84443; 85025

== ENCOUNTER 2023-06-15 07:10 | Outpatient (CLI) | payer MEDICARE, OTHER ==
[2023-06-15 14:42] LABS: BASOPHILS % (AUTO) 0.9 %; EOSINOPHILS # (AUTO) 0.1 10^3/uL (0.0-0.7); EOSINOPHILS % (AUTO) 1.7 %; HCT - HEMATOCRIT 47.9 % (42.0-52.0); HGB - HEMOGLOBIN 15.5 g/dL (14.0-18.0); LYMPHOCYTES # (AUTO) 1.3 10^3/uL (1.5-3.5); LYMPHOCYTES % (AUTO) 28.8 %; MEAN CORPUSCULAR HEMOGLOBIN 32.2 pg (27.0-31.0); MEAN CORPUSCULAR HGB CONC 32.4 g/dL (32.0-36.0); MEAN CORPUSCULAR VOLUME 99.4 fL (80.0-94.0); MEAN PLATELET VOLUME 10.3 fL (7.4-11.4); MONOCYTES # (AUTO) 0.3 10^3/uL (0.0-1.0); MONOCYTES % (AUTO) 7.4 %; NEUTROPHILS # (AUTO) 2.8 10^3/uL (1.5-6.6); PLT - PLATELET COUNT 199 10^3/uL (130-450); RED BLOOD COUNT 4.82 10^6/uL (4.70-6.10); RED CELL DISTRIBUTION WIDTH 12.8 % (12.0-15.0); WHITE BLOOD COUNT 4.6 x10^3/uL (4.8-10.8)
[2023-06-15 14:50] LABS: ALBUMIN 4.2 g/dL (3.2-5.5); ALBUMIN/GLOBULIN RATIO 1.4 (1.0-2.2); ALKALINE PHOSPHATASE 51 IU/L (42-121); ALT ALANINE AMINOTRANSFERASE 21 IU/L (10-60); AST ASPARTATE AMINOTRANSFERASE 17 IU/L (10-42); BUN - BLOOD UREA NITROGEN 14 mg/dL (6-20); CALCIUM 9.8 mg/dL (8.5-10.3); CARBON DIOXIDE - CO2 31 mmol/L (21-32); CHLORIDE 106 mmol/L (101-111); CHOL/HDL RATIO 3.5 (<5.0); CHOLESTEROL 226 mg/dL; CREATININE 0.8 mg/dL (0.6-1.3); GFR - MDRD 93 (>89); GLUCOSE 101 mg/dL (74-104); HDL CHOLESTEROL 65 mg/dL; LDL CHOLESTEROL,CALCULATED 141 mg/dL; LDL/HDL RATIO 2.2 (<3.6); POTASSIUM 4.4 mmol/L (3.5-4.5); SODIUM 141 mmol/L (135-145); TOTAL PROTEIN 7.3 g/dL (6.4-8.9); TRIGLYCERIDES 100 mg/dL (48-352); VLDL CHOLESTEROL 20 mg/dL
[2023-06-15 15:06] LABS: THYROID STIMULATING HORMONE 2.97 uIU/mL (0.34-5.60)
== END 2023-06-15 07:11 | disposition home or self-care (01) ==
LOC: LAB.S 07:10
PROVIDERS: ATTEND Physician Assistant
DX: R20.0 Anesthesia of skin (principal); I10 Essential (primary) hypertension; E78.5 Hyperlipidemia, unspecified; Z85.46 Personal history of malignant neoplasm of prostate
CPT/HCPCS: 36415; 80053; 80061; 82607; 83721; 84153; 84443; 85025

== ENCOUNTER 2023-09-12 10:41 | Outpatient (CLI) | payer MEDICARE, OTHER | END 2023-09-12 10:42 | disposition home or self-care (01) | LOC: LAB.S 10:41 | PROVIDERS: ATTEND Physician Assistant | DX: E53.8 Deficiency of other specified B group vitamins (principal) | CPT/HCPCS: 36415; 82607; 82746; 86340 ==

== ENCOUNTER 2023-11-13 08:00 | Outpatient (CLI) | payer MEDICARE, OTHER ==
[2023-11-14 09:59] LABS: H. PYLORIS ANTIGEN STL NEGATIVE (Negative)
== END 2023-11-13 08:01 | disposition home or self-care (01) ==
LOC: LAB.R 08:00
PROVIDERS: ATTEND Physician Assistant
DX: E53.8 Deficiency of other specified B group vitamins (principal)
CPT/HCPCS: 83993; 87338